=== PATIENT | female | born 1955 | race Caucasian/White ===

== ENCOUNTER 2022-07-03 04:36 | Inpatient (IN) | payer OTHER ==
[2022-06-08 15:37] VITALS: BMI 33.3
[2022-07-03] MEDS ORDERED: PROMETHAZINE HCL 25 MG/1 ML VIAL IVPUSH PRN (14:50)
[2022-07-03] MEDS ORDERED: oxyCODONE HCL 5 MG TABLET PO PRN ×2 (14:50)
[2022-07-03] MEDS ORDERED: ACETAMINOPHEN 1000 MG/100 ML BAG IVPB ONE (14:50)
[2022-07-03] MEDS ORDERED: ONDANSETRON 4 MG/2 ML VIAL IVPUSH PRN (14:50)
[2022-07-03] MEDS ORDERED: LIDOCAINE HCL 1%, 10 MG/ML (20ML VIAL) ONE (14:56)
[2022-07-03] MEDS ORDERED: ISOSULFAN BLUE 50 MG/5 ML VIAL SQ ONE (14:56)
[2022-07-03] MEDS ORDERED: LACTATED RINGERS SOLUTION 1,000 ML IV SCH (15:00)
[2022-07-03 17:08] LABS: ARTERIAL BLD GAS O2 SATURATION 86.7 % (95-98); ARTERIAL BLOOD GAS BASE EXCESS -1.8 mmol/L (-2-2); ARTERIAL BLOOD GAS PO2 51.1 mmHg (80-100); ARTERIAL BLOOD GAS pH 7.407 (7.350-7.450)
[2022-07-03 17:09] LABS: ALLENS TEST POSITIVE
[2022-07-03] MEDS ORDERED: ALBUTEROL SO4 2.5/IPRATROPIUM 0.5 INH SOL 3 ML VIAL.NEB. NEB PRN (18:22)
[2022-07-03] MEDS: ATORVASTATIN CA 40 MG TABLET (FP) PO SCH (23:22)
[2022-07-03] MEDS: APIXABAN 5 MG TABLET PO SCH (23:23)
[2022-07-03] MEDS: INSULIN SLIDING SCALE (NOVOLOG) 1 VIAL SQ SCH (23:27)
[2022-07-04] MEDS: INSULIN SLIDING SCALE (NOVOLOG) 1 VIAL SQ SCH ×4 (06:28→22:28)
[2022-07-04 07:18] LABS: BASO % 1.4 % (0-2.0); EOS % 2.7 % (0-4.5); HEMATOCRIT 36.6 % (32.4-45.2); HEMOGLOBIN 11.9 GM/dL (10.7-15.3); MCH 26.7 pg (25.7-33.7); MCHC 32.4 g/dl (32.0-36.0); MEAN CELL VOLUME 82.2 fl (80-96); MEAN PLT VOLUME 10.6 fl (7.5-11.1); MONO % 9.9 % (3.8-10.2); PLATELET COUNT 456 10^3/uL (134-434); RBC 4.46 M/mm3 (3.60-5.2); RDW 16.4 % (11.6-15.6); WHITE BLOOD COUNT 8.8 K/mm3 (4.0-10.0)
[2022-07-04 07:43] LABS: CALCIUM 9.4 mg/dL (8.5-10.1)
[2022-07-04 07:44] LABS: ALBUMIN 3.3 g/dl (3.4-5.0); BLOOD UREA NITROGEN 22.5 mg/dL (7-18)
[2022-07-04 07:49] LABS: BILIRUBIN,TOTAL 0.9 mg/dL (0.2-1)
[2022-07-04] MEDS: LISINOPRIL 20 MG TABLET PO SCH (09:30)
[2022-07-04] MEDS: DEXAMETHASONE SOD PHOSPHATE 10 MG/1 ML VIAL IVPUSH SCH ×2 (09:31→12:17)
[2022-07-04] MEDS: APIXABAN 5 MG TABLET PO SCH ×2 (09:31→22:28)
[2022-07-04] MEDS ORDERED: APIXABAN 5 MG TABLET PO SCH (10:00)
[2022-07-04] MEDS: metoPROLOL SUCCINATE 25 MG TAB.SR.24H (FP) PO SCH (10:52)
[2022-07-04] MEDS ORDERED: FUROSEMIDE 40 MG/4 ML INJECTABLE VIAL IVPUSH ONE (16:35)
[2022-07-04 18:15] LABS: N-TERMINAL BNP 4347.5 pg/ml (5-125)
[2022-07-04] MEDS: ATORVASTATIN CA 40 MG TABLET (FP) PO SCH (22:28)
[2022-07-05] MEDS: FUROSEMIDE 40 MG/4 ML INJECTABLE VIAL IVPUSH SCH ×2 (06:40→14:04)
[2022-07-05] MEDS: INSULIN SLIDING SCALE (NOVOLOG) 1 VIAL SQ SCH ×5 (06:43→21:26)
[2022-07-05 08:35] LABS: EOS % 0.9 % (0-4.5); HEMATOCRIT 37.4 % (32.4-45.2); MCH 26.4 pg (25.7-33.7); MCHC 32.1 g/dl (32.0-36.0); MEAN CELL VOLUME 82.4 fl (80-96); MEAN PLT VOLUME 11.1 fl (7.5-11.1); MONO % 8.3 % (3.8-10.2); NEUT % 77.8 % (42.8-82.8); PLATELET COUNT 425 10^3/uL (134-434); RBC 4.54 M/mm3 (3.60-5.2); RDW 16.4 % (11.6-15.6)
[2022-07-05 08:42] LABS: CALCIUM 9.3 mg/dL (8.5-10.1)
[2022-07-05 08:43] LABS: ALBUMIN 3.3 g/dl (3.4-5.0); BLOOD UREA NITROGEN 27.8 mg/dL (7-18); MAGNESIUM 2.4 mg/dL (1.8-2.4)
[2022-07-05 08:46] LABS: CREATININE 1.1 mg/dL (0.55-1.3); PHOSPHOROUS 3.7 mg/dL (2.5-4.9)
[2022-07-05 08:47] LABS: BILIRUBIN,TOTAL 0.7 mg/dL (0.2-1)
[2022-07-05 08:48] LABS: TOT PROT 7.2 g/dl (6.4-8.2)
[2022-07-05] MEDS: APIXABAN 5 MG TABLET PO SCH ×2 (09:56→21:20)
[2022-07-05] MEDS: DEXAMETHASONE SOD PHOSPHATE 10 MG/1 ML VIAL IVPUSH SCH (09:56)
[2022-07-05] MEDS: metoPROLOL SUCCINATE 25 MG TAB.SR.24H (FP) PO SCH (09:56)
[2022-07-05] MEDS: LISINOPRIL 20 MG TABLET PO SCH (09:56)
[2022-07-05] MEDS ORDERED: amLODIPine BESYLATE 10 MG TABLET (FP) PO SCH (10:00)
[2022-07-05] MEDS: SPIRONOLACTONE 25 MG TABLET PO SCH (11:56)
[2022-07-05] MEDS ORDERED: INSULIN SLIDING SCALE (NOVOLOG) 1 VIAL SQ SCH (16:59)
[2022-07-05] MEDS: ATORVASTATIN CA 40 MG TABLET (FP) PO SCH (21:20)
[2022-07-06] MEDS: FUROSEMIDE 40 MG/4 ML INJECTABLE VIAL IVPUSH SCH (06:15)
[2022-07-06] MEDS: INSULIN SLIDING SCALE (NOVOLOG) 1 VIAL SQ SCH ×3 (06:28→17:27)
[2022-07-06 08:27] LABS: BASO % 1.4 % (0-2.0); EOS % 0.7 % (0-4.5); HEMATOCRIT 37.6 % (32.4-45.2); LYMPH % 11.4 % (8-40); MCH 26.4 pg (25.7-33.7); MCHC 31.9 g/dl (32.0-36.0); MEAN CELL VOLUME 82.6 fl (80-96); MONO % 6.5 % (3.8-10.2); PLATELET COUNT 426 10^3/uL (134-434); RBC 4.55 M/mm3 (3.60-5.2); RDW 16.3 % (11.6-15.6); WHITE BLOOD COUNT 10.6 K/mm3 (4.0-10.0)
[2022-07-06 08:52] LABS: CALCIUM 9.3 mg/dL (8.5-10.1)
[2022-07-06 08:55] LABS: CREATININE 1.3 mg/dL (0.55-1.3)
[2022-07-06] MEDS: DEXAMETHASONE SOD PHOSPHATE 10 MG/1 ML VIAL IVPUSH SCH (09:58)
[2022-07-06] MEDS: APIXABAN 5 MG TABLET PO SCH (09:59)
[2022-07-06] MEDS: metoPROLOL SUCCINATE 25 MG TAB.SR.24H (FP) PO SCH (09:59)
[2022-07-06] MEDS: SPIRONOLACTONE 25 MG TABLET PO SCH (09:59)
[2022-07-06 16:18] VITALS: RESP 20
[2022-07-06 20:37] VITALS: BP 127/70; PULSE 68; TEMP 98.6
[2022-07-07] MEDS ORDERED: FUROSEMIDE 40 MG TABLET (FP) PO SCH (10:00)
== END 2022-07-06 19:30 | disposition home or self-care (01) | DRG 133 ==
LOC: JASU-SURG 04:36 → J2C 18:17 → J4W 21:46
PROVIDERS: ADMIT Surgery; ATTEND Internal Medicine
DX: J96.01 Acute respiratory failure with hypoxia (principal); I44.7 Left bundle-branch block, unspecified; D64.9 Anemia, unspecified; I25.10 Atherosclerotic heart disease of native coronary artery without angina pectoris; I45.10 Unspecified right bundle-branch block; E78.5 Hyperlipidemia, unspecified; I34.0 Nonrheumatic mitral (valve) insufficiency; I13.0 Hypertensive heart and chronic kidney disease with heart failure and stage 1 through stage 4 chronic kidney disease, or unspecified chronic kidney disease; E11.22 Type 2 diabetes mellitus with diabetic chronic kidney disease; N18.9 Chronic kidney disease, unspecified; I50.23 Acute on chronic systolic (congestive) heart failure; Z86.718 Personal history of other venous thrombosis and embolism; Z85.3 Personal history of malignant neoplasm of breast; Z86.73 Personal history of transient ischemic attack (TIA), and cerebral infarction without residual deficits
CPT/HCPCS: 36415; 36600; 71045-TC-FY; 71260-TC; 78195-TC; 80048; 80053; 80061; 82803; 82962; 83036; 83735; 83880; 84100; 84443; 85025; 85379; 86140; 93005; 93010; 93306-TC; 94010; 94760; 94761; A9541; C9803-CS; J1100; Q9967; U0003; U0005

== ENCOUNTER 2022-08-29 04:13 | Day surgery (SDC) | payer OTHER ==
[2022-08-24 10:03] VITALS: BMI 31.6
[2022-08-29] MEDS ORDERED: MIDAZOLAM HCL 2 MG/2 ML SINGLE DOSE VIAL ONE (08:50)
[2022-08-29] MEDS ORDERED: ISOSULFAN BLUE 50 MG/5 ML VIAL SQ ONE (09:30)
[2022-08-29] MEDS ORDERED: ceFAZolin SODIUM 1 GM VIAL ONE (09:31)
[2022-08-29] MEDS ORDERED: DEXAMETHASONE SOD PHOSPHATE 4 MG/1 ML VIAL ONE (09:31)
[2022-08-29] MEDS ORDERED: ONDANSETRON 4 MG/2 ML VIAL ONE ×2 (09:32→09:34)
[2022-08-29] MEDS ORDERED: ceFAZolin SODIUM 1 GM VIAL IVPB ONE (10:24)
[2022-08-29] MEDS ORDERED: LIDOCAINE HCL 1% PRESERVATIVE FREE - 30ML VIAL IJ ONE (11:35)
[2022-08-29] MEDS ORDERED: oxyCODONE HCL 5 MG TABLET PO PRN (11:53)
[2022-08-29] MEDS ORDERED: ONDANSETRON 4 MG/2 ML VIAL IVPUSH PRN (11:53)
[2022-08-29] MEDS ORDERED: LACTATED RINGERS SOLUTION 1,000 ML IV SCH (12:00)
[2022-08-29 13:40] VITALS: PULSE 82; RESP 18
[2022-08-29 14:41] VITALS: BP 110/60; TEMP 97.7
== END 2022-08-29 15:16 | disposition home or self-care (01) ==
LOC: JASU-SURG 04:13
PROVIDERS: ATTEND Surgery
PROC: 07B50ZX Excision of Right Axillary Lymphatic, Open Approach, Diagnostic (ICD-10-PCS; 2022-08-29)
PROC: C71L1ZZ Planar Nuclear Medicine Imaging of Upper Chest Lymphatics using Technetium 99m (Tc-99m) (ICD-10-PCS; 2022-08-29)
PROC: 0HBT0ZZ Excision of Right Breast, Open Approach (ICD-10-PCS; principal; 2022-08-29 09:00)
DX: C50.911 Malignant neoplasm of unspecified site of right female breast (principal); C77.3 Secondary and unspecified malignant neoplasm of axilla and upper limb lymph nodes
CPT/HCPCS: 78195-TC; 82962; 88307-TC; 88341-TC; 88342-TC; 94760; A9541